=== PATIENT | female | born 1935 | race Caucasian/White ===

== ENCOUNTER 2017-05-10 12:40 | Emergency (ER) | payer OTHER, MEDICAID ==
--- NOTE | 2017-05-10 13:04 | EDPHY ---
H & P Time Seen by Provider: 05/10/17 12:52 HPI/ROS: Chief complaint. high blood pressure, racing pulse HPI. 82-year-old female presents emergency department with complaint that the home health nurse found her blood pressure to be elevated today at 100/98 and heart rate 120. It was a home health visit for checkup getting ready for oral surgery. Patient has no symptoms. No chest discomfort, shortness of breath, abdominal pain, fever. She does have slight swelling in her ankles it is worse at the end of the day and better in the morning. No fever or cough. No vomiting or diarrhea. Patient feels well now ROS Constitutional. Elevated blood pressure Eyes. no problems with vision ENT. no sore throat, no nasal drainage Cardiovascular. No chest discomfort but fast heart rate at home Respiratory. no shortness of breath, no cough Abdominal. no abdominal pain, no nausea/vomiting, no diarrhea . no problems urinating MS. no calf pain/swelling, no neck/back pain, no joint pain Skin. no rash Lymph. no swollen glands Neuro. no headache, no dizziness, no difficulty walking or with speech Past Medical/Surgical History: Past medical history arrhythmia and knee replacements. She is on Coumadin Social History: Single, nonsmoker, no alcohol Smoking Status: Never smoked Physical Exam: General Appearance: Alert pleasant well-developed female no distress vital signs show a heart rate of 61 and a blood pressure 115/63 Eyes:[ Pupils equal and round no pallor or injection]. ENT,[ Mouth: Mucous membranes are moist.] Respiratory: [There are no retractions, lungs are clear to auscultation.] Cardiovascular:[ Regular rate and rhythm.] Gastrointestinal: [ Abdomen is soft and nontender, no masses, bowel sounds normal.] Neurological: [Awake and alert, sensory and motor exams grossly normal.] Skin:[ Warm and dry, no rashes.] Musculoskeletal: [Neck is supple nontender.] Extremities trace swelling to ankles Psychiatric:[ Patient is oriented X 3, there is no agitation.] Constitutional: Initial Vital Signs Temperature (C) 36.4 C 05/10/17 12:42 Heart Rate 61 05/10/17 12:42 Respiratory Rate 18 05/10/17 12:42 Blood Pressure 115/63 05/10/17 12:42 O2 Sat (%) 95 05/10/17 12:42 O2 Delivery Mode Room Air Allergies/Adverse Reactions: vicodin Allergy (Uncoded 05/10/17 12:47) Home Medications: Medication Instructions Recorded Coumadin 05/10/17 Medical Decision Making - Diagnostics Imaging Results: Imaging Impressions Chest X-Ray 05/10/17 13:19 Impression: Acute CHF. Cannot exclude underlying micronodular lung disease ( which if present could potentially indicate miliary TB). Results discussed with Dr. Mcguire. Chest x-ray interpreted by me shows an enlarged heart. There are multiple small calcifications that could represent miliary TB. Procedures: IV normal saline, monitor ED Course/Re-evaluation: Re-evaluation the patient and her daughter tell me that she has had multiple TB skin test had been negative. She has had a chest x-ray and long month that they told her also that she had multiple small calcifications. I consulted discussed the case with Dr. Wagner who reviewed patient's chart. He noted that the patient has had echo and that she has had dilated heart on x- ray and echo previously. He also notes that the patient in October was also supposed to be taking hydrochlorothiazide and metoprolol for rate control. Re-evaluation with the patient and I discussed medications and indeed she does continue to take the above medications in addition to Coumadin. It was however not listed on med sheet. Differential Diagnosis: Patient was found to have an elevated heart rate and blood pressure by home health nurse. However she has been stable here. With normal heart rate and normal blood pressure. She is on metoprolol for rate control. She is on diuretic for her mild CHF. I have also considered TB though it appears that the patient has had multiple negative TB skin tests. - Data Points Laboratory Results: Laboratory Results 05/10/17 13:28 05/10/17 13:28 05/10/17 05/10/17 05/10/17 13:28 13:28 13:28 WBC 4.99 10^3/uL 10^3/uL (3.80-9.50) RBC 3.74 10^6/uL L 10^6/uL (4.18-5.33) Hgb 10.0 g/dL L g/dL (12.6-16.3) Hct 32.4 % L % (38.0-47.0) MCV 86.6 fL fL (81.5-99.8) MCH 26.7 pg L pg (27.9-34.1) MCHC 30.9 g/dL L g/dL (32.4-36.7) RDW 16.7 % H % (11.5-15.2) Plt Count 196 10^3/uL 10^3/uL (150-400) MPV 9.7 fL fL (8.7-11.7) Neut % (Auto) 52.3 % % (39.3-74.2) Lymph % (Auto) 34.1 % % (15.0-45.0) [place] % (Auto) 12.8 % % (4.5-13.0) Eos % (Auto) 0.0 % L % (0.6-7.6) Baso % (Auto) 0.4 % % (0.3-1.7) Nucleat RBC Rel Count 0.0 % % (0.0-0.2) Absolute Neuts (auto) 2.61 10^3/uL 10^3/uL (1.70-6.50) Absolute Lymphs (auto) 1.70 10^3/uL 10^3/uL (1.00-3.00) Absolute Monos (auto) 0.64 10^3/uL 10^3/uL (0.30-0.80) Absolute Eos (auto) 0.00 10^3/uL L 10^3/uL (0.03-0.40) Absolute Basos (auto) 0.02 10^3/uL 10^3/uL (0.02-0.10) Absolute Nucleated RBC 0.00 10^3/uL 10^3/uL (0-0.01) Immature Gran % 0.4 % % (0.0-1.1) Immature Gran # 0.02 10^3/uL 10^3/uL (0.00-0.10) PT 16.0 SEC H SEC (12.0-15.0) INR 1.28 H (0.83-1.16) APTT 30.4 SEC SEC (23.0-38.0) Sodium 140 mEq/L mEq/L (134-144) Potassium 4.3 mEq/L mEq/L (3.5-5.2) Chloride 107 mEq/L mEq/L (97-110) Carbon Dioxide 21 mEq/l L mEq/l (22-31) Anion Gap 12 mEq/L mEq/L (8-16) BUN 20 mg/dL mg/dL (7-23) Creatinine 0.8 mg/dL mg/dL (0.6-1.0) Estimated GFR > 60 Glucose 118 mg/dL H mg/dL (70-100) Calcium 8.6 mg/dL mg/dL (8.5-10.4) Troponin I < 0.012 ng/mL ng/mL (0-0.034) NT-Pro-B Natriuret Pep 851 pg/mL H pg/mL (0-450) Departure - Departure Disposition: Home, Routine, Self-Care Clinical Impression: Hypertension Qualifiers: Hypertension type: essential hypertension Qualified Code(s): I10 - Essential ( primary) hypertension Condition: Good Instructions: Hypertension (ED) Additional Instructions: Continue your regular medications. Have your TB skin test read in 2-3 days by home health nurse, our ER, your regular physician. Return for trouble breathing , chest discomfort. Re-evaluation in 2-3 days. Call for appointment Referrals: Vielka Flynn CNP [Primary Care Provider] - 2-3 days, call for appt.
[2017-05-10 13:33] LABS: % IMMATURE GRANULYOCYTES 0.4 % (0.0-1.1); ABSOLUTE IMMATURE GRANULOCYTES 0.02 10^3/uL (0.00-0.10); ADD DIFF? NO; ADD MORPH? NO; ADD SCAN? NO; ATYPICAL LYMPHOCYTE FLAG 20 (0-99); FRAGMENT RBC FLAG 0 (0-99); HEMATOCRIT 32.4 % (38.0-47.0); LEFT SHIFT FLG 0 (0-99); LIPEMIA HEMOLYSIS FLAG 80 (0-99); MEAN CELL HEMOGLOBIN 26.7 pg (27.9-34.1); MEAN CELL HEMOGLOBIN CONCENTR. 30.9 g/dL (32.4-36.7); MEAN CELL VOLUME 86.6 fL (81.5-99.8); MEAN PLATELET VOLUME 9.7 fL (8.7-11.7); PLATELET CLUMPS FLAG 10 (0-99); PLATELET COUNT 196 10^3/uL (150-400); RED BLOOD CELL COUNT 3.74 10^6/uL (4.18-5.33); RED CELL DISTRIBUTION WIDTH 16.7 % (11.5-15.2)
[2017-05-10 13:42] LABS: APTT 30.4 SEC (23.0-38.0); INR 1.28 (0.83-1.16)
--- NOTE | 2017-05-10 13:42 | CPEKG ---
Heart Rate: 50 RR Interval: 1200 QRSD Interval: 84 QT Interval: 492 QTC Interval: 449 QRS [place]: 12 T Wave [place]: 26 EKG Severity - ABNORMAL ECG - EKG Impression: ATRIAL FLUTTER, A-RATE 238 EKG Impression: LOW VOLTAGE IN FRONTAL LEADS Electronically Signed By: Chema Mcguire 10-May-2017 15:43:50
[2017-05-10 13:44] LABS: ANION GAP 12 mEq/L (8-16); CALCIUM 8.6 mg/dL (8.5-10.4); CARBON DIOXIDE 21 mEq/l (22-31); CHLORIDE 107 mEq/L (97-110); CREATININE 0.8 mg/dL (0.6-1.0); GLOMERULAR FILTRATION RATE > 60; GLUCOSE 118 mg/dL (70-100); POTASSIUM 4.3 mEq/L (3.5-5.2); SODIUM 140 mEq/L (134-144)
[2017-05-10 13:56] LABS: TROPONIN I < 0.012 ng/mL (0-0.034)
[2017-05-10] MEDS ORDERED: TUBERCULIN (PPD) 5 TU/0.1 ML SYRINGE ID ONE (14:58)
[2017-05-10 15:37] VITALS: BP 125/64; PULSE 53; RESP 14; TEMP 97.9; O2SAT 92
== END 2017-05-10 15:37 | disposition home or self-care (01) ==
DX: I10 Essential (primary) hypertension (principal); Z79.01 Long term (current) use of anticoagulants